=== PATIENT | male | born 1980 | race Caucasian/White ===

== ENCOUNTER 2016-11-29 13:49 | Inpatient (IN) | payer MEDICAID ==
[~2016-11-29] VITALS: Ht 167.6 cm; Wt 99.8 kg
[2016-11-29 16:04] LABS: PLATELET COUNT 253 x10^3mcL (130-400)
[2016-11-29 16:13] LABS: CALCIUM 8.7 mg/dL (8.5-10.1); CHLORIDE SERUM 105 mmol/L (98-107); GFR1 > 60 mL/min; GLUCOSE SERUM 84 mg/dL (74-106); POTASSIUM SERUM 3.7 mmol/L (3.5-5.1); SODIUM SERUM 141 mmol/L (136-145)
[2016-11-29 16:17] LABS: ALBUMIN 3.8 g/dL (3.4-5.0); ALKALINE PHOSPHATASE 60 U/L (46-116); ALT/SGPT 54 U/L (16-63); AST/SGOT 28 U/L (15-37); BILIRUBIN TOTAL 0.48 mg/dL (0.20-1.00); CHOLESTEROL 167 mg/dL (<200); HDL CHOLESTEROL 56 mg/dL (40-60); MAGNESIUM 1.7 mg/dL (1.8-2.4); TOTAL PROTEIN, SERUM 7.7 g/dL (6.4-8.2)
[2016-11-29 16:20] LABS: RED CELL DISTRIBUTION WIDTH 20.3 % (11.5-14.5)
[2016-11-29 16:50] LABS: BAND NEUTROPHIL 2 % (0-10); MONOCYTE 7 % (0-7); SEGMENTED NEUTROPHILS 79 % (37-75); rbc morphology (normal/abnorm) ABNORMAL (NORMAL)
[2016-11-29 16:51] LABS: tear drop cell (dacryocyte) 1+
[2016-11-29] MEDS ORDERED: PROVENTIL0.09 MG/A1 INH (18:46)
[2016-11-29] MEDS ORDERED: ADV100/50 INH (18:46)
[2016-11-29 19:20] LABS: T3 TOTAL 1.01 ng/mL
[2016-11-29 19:43] LABS: PHOSPHOROUS 3.2 mg/dL (2.5-4.9)
[2016-11-29 19:53] LABS: FREE T4 0.84 ng/dL (0.76-1.46); T4(THYROXINE) 6.3 ug/dL (4.7-13.3)
[2016-11-29 19:56] VITALS: BP 141/98
[2016-11-29 20:57] LABS: CHOLESTEROL/HDL RATIO 3.1
[2016-11-30 06:41] LABS: CARBON DIOXIDE 24.8 mmol/L (21-32); CHLORIDE SERUM 108 mmol/L (98-107); CREATININE SERUM 0.9 mg/dL (0.7-1.3); GFR1 > 60 mL/min; GLUCOSE SERUM 86 mg/dL (74-106); MAGNESIUM 2.4 mg/dL (1.8-2.4); POTASSIUM SERUM 3.7 mmol/L (3.5-5.1); SODIUM SERUM 142 mmol/L (136-145)
[2016-11-30 06:56] VITALS: BP 103/59
[2016-11-30 07:04] LABS: BASOPHIL % 0.2 % (0-2); PLATELET COUNT 222 x10^3mcL (130-400)
[2016-11-30 07:10] LABS: RED CELL DISTRIBUTION WIDTH 20.3 % (11.5-14.5)
[2016-11-30 07:48] LABS: microscopic required? NO
[2016-11-30 08:52] LABS: rbc morphology (normal/abnorm) ABNORMAL (NORMAL)
[2016-11-30 09:07] LABS: UA SPECIFIC GRAVITY 1.025 (1.005-1.035); urine erythrocyte NEGATIVE (NEGATIVE)
[2016-11-30 09:55] LABS: AMPHETAMINE QUAL UR NONE DETECTED (NEG <=1000)
[2016-11-30 10:38] VITALS: BP 98/61
[2016-11-30 13:43] VITALS: BP 122/69
[2016-11-30 13:44] LABS: RED BLOOD CELLS 4.11 M/mm3 (4.52-5.90)
[2016-11-30 14:06] LABS: IRON 37 ug/dL (65-170); TOTAL IRON BINDING CAPACITY 426 ug/dL (250-450)
[2016-11-30 17:12] VITALS: BP 114/69
[2016-11-30 21:41] VITALS: BP 116/63
[2016-12-01 05:50] VITALS: BP 101/61
[2016-12-01 06:21] LABS: BASOPHIL % 0.4 % (0-2); PLATELET COUNT 196 x10^3mcL (130-400)
[2016-12-01 06:38] LABS: CARBON DIOXIDE 25.6 mmol/L (21-32); CHLORIDE SERUM 109 mmol/L (98-107); CREATININE SERUM 0.8 mg/dL (0.7-1.3); GFR1 > 60 mL/min; GLUCOSE SERUM 79 mg/dL (74-106); POTASSIUM SERUM 3.6 mmol/L (3.5-5.1); SODIUM SERUM 142 mmol/L (136-145)
[2016-12-01 06:46] LABS: RED CELL DISTRIBUTION WIDTH 20.3 % (11.5-14.5)
[2016-12-01 06:47] LABS: rbc morphology (normal/abnorm) ABNORMAL (NORMAL)
[2016-12-01 10:11] VITALS: BP 107/68
[2016-12-01] MEDS ORDERED: ZES10 PO (11:57)
[2016-12-01] MEDS ORDERED: FER300 PO (11:57)
[2016-12-01 13:14] VITALS: BP 107/68
== END 2016-12-01 13:49 | disposition home or self-care (01) | DRG 204 ==
LOC: ED 13:49 → DU 18:23
PROVIDERS: Emergency Medicine; ADMIT Family Medicine
DX: R55 Syncope and collapse (principal); E83.42 Hypomagnesemia; S01.511A Laceration without foreign body of lip, initial encounter; D64.9 Anemia, unspecified; E78.2 Mixed hyperlipidemia; E66.9 Obesity, unspecified; I16.0 Hypertensive urgency; J45.909 Unspecified asthma, uncomplicated; F12.10 Cannabis abuse, uncomplicated; R73.03 Prediabetes; Z68.35 Body mass index [BMI] 35.0-35.9, adult; W18.11XA Fall from or off toilet without subsequent striking against object, initial encounter; Y92.26 Movie house or cinema as the place of occurrence of the external cause
CPT/HCPCS: 82962; 83880; 84439; J3475; J7030; Q0092